=== PATIENT | female | born 1965 | race Caucasian/White ===

== ENCOUNTER 2017-11-15 07:37 | Day surgery (SDC) | payer BC ==
[~2017-11-15 07:37] MED LIST: ATROPINE 1 MG/10 ML SYRINGE IV; DIPHENHYDRAMINE 50 MG INJ IV; EPHEDrine SULFATE 50 MG/5 ML SYG IV; FENTAnyl 50 MCG/ML VIAL IV; HYDROmorphONE 1 MG/5 ML IV SYRINGE IV; LABETALOL HCL 20MG INJ IV; MEPERIDINE 25 MG INJ IV; MIDAZOLAM 1 MG/ML 2 ML INJ IV; OXYCODONE/ACETAMINOPHEN (5/325) TAB PO; hydrALAzine 20 MG INJ IV; morphine (1 MG/ML) 10ML SYRINGE IV
[2017-11-15] MEDS ORDERED: CEFAZOLIN 2 GM/50 ML (PMX) 50 ML IVPB (13:00)
[2017-11-15] MEDS ORDERED: SOD CHLORIDE 0.9% 1,000 ML IV (13:00)
[2017-11-15] MEDS ORDERED: LIDOCAINE 100 MG SYRINGE (14:28)
[2017-11-15] MEDS ORDERED: PROPOFOL 20 ML (14:28)
[2017-11-15] MEDS ORDERED: SUCCINYLCHOLINE CHLORIDE 100 MG/5 ML SYG IV (14:28)
[2017-11-15] MEDS ORDERED: GLYCOPYRROLATE 0.4 MG INJ (14:29)
[2017-11-15] MEDS ORDERED: NEOSTIGMINE 3 MG/3 ML SYRINGE (14:29)
[2017-11-15] MEDS ORDERED: HYDROCODONE/APAP (7.5/325) TAB PO (17:00)
[2017-11-15] MEDS: morphine (1 MG/ML) 10ML SYRINGE IV ×2 (17:26→18:02)
[2017-11-15] MEDS: ONDANSETRON 4 MG INJ IV ×2 (17:31→18:44)
== END 2017-11-15 19:15 | disposition home or self-care (01) ==
LOC: SDS 07:37
DX: N62 Hypertrophy of breast (principal); I10 Essential (primary) hypertension
CPT/HCPCS: 19301; 71045; 88307; 93005